=== PATIENT | female | born 1980 | race Caucasian/White ===

== ENCOUNTER 2016-11-08 18:00 | Emergency (ER) | payer BC ==
--- NOTE | 2016-11-08 18:38 | EDM.PDOCBH ---
ED HPI GENERAL MEDICAL PROBLEM - General Chief Complaint: Behavioral/Psych Time Seen by Provider: 11/08/16 18:23 Source of Information: Reports: Patient - History of Present Illness INITIAL COMMENTS - FREE TEXT/NARRATIVE: Patient presents for medical clearance to go to treatment for mental health. Pt has been screened and accepted for treatment pending medical clearance. 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: Psychiatric History: Reports: ADD, ADHD, Anxiety, Depression, OCD Social & Family History - Tobacco Use Smoking Status *Q: Current Every Day Smoker Years of Tobacco use: 20 Packs/Tins Daily: 1 Used Tobacco, but Quit: No Second Hand Smoke Exposure: Yes - Recreational Drug Use Recreational Drug Use: No ED ROS GENERAL - Review of Systems Review Of Systems: See Below Constitutional: Denies: Fever, Chills, Weakness, Decreased Appetite HEENT: Denies: Ear Pain, Throat Pain Respiratory: Denies: Shortness of Breath, Cough Cardiovascular: Denies: Chest Pain, Syncope GI/Abdominal: Denies: Abdominal Pain : Denies: Dysuria, Flank Pain Musculoskeletal: Reports: No Symptoms Skin: Reports: No Symptoms Neurological: Denies: Confusion, Seizure, Syncope Psychiatric: Reports: Anxiety ED EXAM, BEHAVIORAL HEALTH - Physical Exam Exam: See Below Exam Limited By: No Limitations General Appearance: Alert, WD/WN, Anxious Eye Exam: Bilateral Eye: EOMI, Normal Inspection, PERRL Ears: Normal External Exam, Normal Canal, Hearing Grossly Normal, Normal TMs Nose: Normal Inspection, No Blood Throat/Mouth: Normal Inspection, Normal Lips, Normal Oropharynx, Normal Voice, No Airway Compromise Head: Atraumatic, Normocephalic Neck: Full Range of Motion Respiratory/Chest: No Respiratory Distress, Lungs Clear, Normal Breath Sounds, No Accessory Muscle Use Cardiovascular: Regular Rate, Rhythm, No Murmur GI/Abdominal: Normal Bowel Sounds, Soft, Non-Tender, Other (I performed an abbreviated abdominal exam as this exacerbated her anxiety noticeably; her health-care worker says this is do to previous trauma (further details were not obtained).) Back Exam: Normal Inspection Extremities: Normal Inspection, Normal Range of Motion Neurological: Alert, CN II-XII Intact, Normal Cognition, No Motor/Sensory Deficits, Oriented x 3 Psychiatric: Alert, Normal Cognition, Oriented, Tearful. No: Suicidal Plan, Suicidal Thoughts Skin Exam: Warm, Dry, Intact, Normal color, No rash COURSE, BEHAVIORAL HEALTH COMP - Course Orders, Labs, Meds: Active Orders 24 hr Category Date Time Status ETHANOL BLOOD MEDICAL [CHEM] Stat Lab 11/08/16 18:15 Received MAGNESIUM [CHEM] Stat Lab 11/08/16 18:15 Received TOTAL IRON BINDING CAPACITY [CHEM] Stat Lab 11/08/16 18:15 Received UA W/MICROSCOPIC [URIN] Stat Lab 11/08/16 18:03 Uncollected Medical Clearance: 11/08/16 18:46 [facility] with her accepting mental health center. Waiting on lab results. 11/08/16 19:22 Talked with the receiving MD at the [facility] and he is okay with patient transferring without UA so will send her now. Patient is stable for transfer. Departure - Departure Time of Disposition: 19:22 Disposition: DC/Tfer to Psych Hosp/Unit 65 Condition: Good Clinical Impression: Mental health disorder - Discharge Information Forms: ED Department Discharge - My Orders Last 24 Hours: My Active Orders 11/08/16 18:03 UA W/MICROSCOPIC [URIN] Stat 11/08/16 18:15 ETHANOL BLOOD MEDICAL [CHEM] Stat MAGNESIUM [CHEM] Stat TOTAL IRON BINDING CAPACITY [CHEM] Stat - Assessment/Plan Last 24 Hours: My Active Orders 11/08/16 18:03 UA W/MICROSCOPIC [URIN] Stat 11/08/16 18:15 ETHANOL BLOOD MEDICAL [CHEM] Stat MAGNESIUM [CHEM] Stat TOTAL IRON BINDING CAPACITY [CHEM] Stat
[2016-11-08 18:39] VITALS: BP 141/83
[2016-11-08] MEDS ORDERED: LORazepam 2 MG/ML SDV IM ONE (18:43)
== END 2016-11-08 19:30 ==
LOC: KA.ED 18:00
DX: F99 Mental disorder, not otherwise specified (principal); F90.8 Attention-deficit hyperactivity disorder, other type; F41.9 Anxiety disorder, unspecified; F31.9 Bipolar disorder, unspecified; F42.9 Obsessive-compulsive disorder, unspecified; F17.210 Nicotine dependence, cigarettes, uncomplicated; Z79.899 Other long term (current) drug therapy
CPT/HCPCS: 36415; 83540; 83550; 83735; 99283; G0480; J2060

== ENCOUNTER 2020-03-16 09:53 | Emergency (ER) | payer BC ==
--- NOTE | 2020-03-16 10:12 | EDM.PDOC ---
ED HPI GENERAL MEDICAL PROBLEM - General Chief Complaint: Abdominal Pain Stated Complaint: RUQ PAIN Time Seen by Provider: 03/16/20 09:53 Source of Information: Reports: Patient History Limitations: Reports: No Limitations - History of Present Illness INITIAL COMMENTS - FREE TEXT/NARRATIVE: Chelsea, 39-year-old female, this morning was not feeling well while she was at work. She contacted the clinic and was placed into a telemedicine Zoom visit for evaluation. Provider felt she was witnessing shortness of breath along with her discomfort and recommended she being transported for the facility for evaluation. Known Covid positive with recovery 2 months ago. 1 month of symptoms with recovery since then. Stated she had first felt is if she was hypoglycemic as she had not eaten much this morning. She drank some high sugar content fluid and had a blood sugar of 233 when it was checked. This dissipated into the 170s when ambulance presented on initial assessment. She denies any shortness of breath at the time ambulance arrived or since then. Onset: Today, Sudden Duration: Minutes: Location: Reports: Abdomen Quality: Reports: Ache Severity: Moderate Improves with: Reports: None Worsens with: Reports: Movement Context: Reports: Activity Associated Symptoms: Reports: No Other Symptoms Right Upper Abdomen Pain Score (Numeric/FACES): 3 - Related Data Allergies Allergy/AdvReac Type Severity Reaction Status Date / Time No Known Drug Allergies Allergy Unknown none Verified 11/08/16 16:53 Home Meds: Home Meds Omeprazole 20 mg PO BID 11/07/15 [History] atorvaSTATin [Lipitor] 20 mg PO DAILY 11/07/15 [History] lamoTRIgine [Lamotrigine] 200 mg PO BEDTIME 11/07/15 [History] Gabapentin [Neurontin] 300 mg PO BID 11/08/16 [History] metFORMIN HCl [Metformin HCl] 1,000 mg PO BID 11/08/16 [History] DULoxetine HCl [Cymbalta] 120 mg PO BEDTIME 03/16/20 [History] Lurasidone HCl [Latuda] 60 mg PO DAILY 03/16/20 [History] Sulfamethoxazole/Trimethoprim [Bactrim Ds Tablet] 1 each PO BID 7 Days #14 tablet 03/16/20 [Rx] glipiZIDE [Glucotrol] 5 mg PO BID 03/16/20 [History] hydrOXYzine HCL [Hydroxyzine HCl] 25 mg PO TID PRN 03/16/20 [History] Past Medical History HEENT History: Reports: None Cardiovascular History: Reports: None Respiratory History: Reports: None 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: , 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 ED EXAM, GENERAL - Physical Exam Exam: See Below Free Text/Narrative:: Alert oriented, in no acute distress. She is able to move from the ambulance cart per self and ambulate to the bathroom at which time she is able to give us a urine sample. She has slight discomfort in the right upper quadrant with positioning. She denies any shortness of breath with activity or after ambulance arrival. HEENT is negative discharge or deformity. There is no cyanosis nor pallor. PERRLA no icterus no injection There is no involvement of the auditory canals nor tympanic membranes. Neck is soft supple with no lymphadenopathy. Thorax is clear no wheezes nor crackles are noted. Cardiac is S1 is 2 with no appreciated murmur somewhat distant tones. Abdomen is soft bowel sounds are present there is mild tenderness in the right upper quadrant but not in a repeated fashion. No flank pain is noted. No tenderness to the pelvic girdle or over the urinary bladder with no edema to the lower extremities motion is intact and pulses are present. Skin is warm and dry. rectal is deferred. Course - Vital Signs Last Recorded V/S: Last Vital Signs Temp 97.8 F 03/16/20 10:56 Pulse 79 03/16/20 10:56 Resp 18 03/16/20 10:56 BP 113/66 03/16/20 10:56 Pulse Ox 93 L 03/16/20 10:56 - Orders/Labs/Meds Labs: Laboratory Tests 03/16/20 03/16/20 03/16/20 Range/Units 09:45 09:45 10:08 WBC 15.91 H (5.00-10.00) 10^3/uL RBC 5.15 (3.80-5.50) 10^6/uL Hgb 14.5 (12.0-16.0) g/dL Hct 44.8 (37.0-47.0) % MCV 87.0 (82.0-92.0) fL MCH 28.2 (27.0-31.0) pg MCHC 32.4 (32.0-36.0) g/dL RDW 14.3 (11.5-14.5) % Plt Count 422 H (150-400) 10^3/uL MPV 9.3 (7.4-10.4) fL Immature Gran % (Auto) 0.1 (0.0-5.0) % Neut % (Auto) 73.5 H (50.0-70.0) % Lymph % (Auto) 18.2 L (20.0-40.0) % [place] % (Auto) 5.5 (2.0-8.0) % Eos % (Auto) 2.3 (1.0-3.0) % Baso % (Auto) 0.4 (0.0-1.0) % Neut # (Auto) 11.69 H (2.50-7.00) 10^3/uL Lymph # (Auto) 2.89 (1.00-4.00) 10^3/uL [place] # (Auto) 0.88 H (0.10-0.80) 10^3/uL Eos # (Auto) 0.37 H (0.10-0.30) 10^3/uL Baso # (Auto) 0.06 (0.00-0.10) 10^3/uL Immature Gran # (Auto) 0.02 (0.00-0.50) 10^3/uL Sodium 140 (136-145) mmol/L Potassium 3.7 (3.3-5.3) mmol/L Chloride 102 (98-115) mmol/L Carbon Dioxide 21.7 (21.0-32.0) mmol/L Anion Gap 20.0 H (5-15) mmol/L BUN 11 (6-25) mg/dL Creatinine 0.68 (0.51-1.17) mg/dL Est Cr Clr Drug Dosing TNP Estimated GFR (MDRD) > 60 mL/min Glucose 142 H (75 - 99) mg/dL Calcium 9.5 (8.7-10.3) mg/dL Total Bilirubin 0.3 (0.2-1.0) mg/dL AST 20 (15-37) U/L ALT 25 (12-78) U/L Alkaline Phosphatase 94 (46-116) IU/L Total Protein 7.3 (6.4-8.2) g/dL Albumin 3.67 (3.00-4.80) g/dL Amylase 50 (25-125) U/L Lipase 54 L (73-393) U/L Specimen Type Urincc Urine Color Yellow (YELLOW) Urine Appearance Clear (CLEAR) Urine pH 5.5 (5.0-9.0) Ur Specific [place] 1.010 (1.005-1.030) Urine Protein Negative (NEGATIVE) mg/dL Urine Glucose (UA) Negative (NEGATIVE) mg/dL Urine Ketones Negative (NEGATIVE) mg/dL Urine Occult Blood Negative (NEGATIVE) Urine Nitrite Negative (NEGATIVE) Urine Bilirubin Negative (NEGATIVE) Urine Urobilinogen 0.2 (0.2-1.0) E.U./dL Ur Leukocyte Esterase Negative (NEGATIVE) Urine RBC 0-5 (0-5) /HPF Urine WBC 0-5 (0-5) /HPF Ur Epithelial Cells Occasional /LPF Urine Bacteria Rare (NONE TO FEW) /HPF Departure - Departure Time of Disposition: 11:42 Disposition: Home, Self-Care 01 Condition: Good, Fair Clinical Impression: Gastroenteritis Leukocytosis Qualifiers: Leukocytosis type: unspecified Qualified Code(s): D72.829 - Elevated white blood cell count, unspecified - Discharge Information *PRESCRIPTION DRUG MONITORING PROGRAM REVIEWED*: Not Applicable *COPY OF PRESCRIPTION DRUG MONITORING REPORT IN PATIENT [place]: Not Applicable Prescriptions: Sulfamethoxazole/Trimethoprim [Bactrim Ds Tablet] 1 each PO BID 7 Days #14 tablet Referrals: Tyesha Hutchins MD [Primary Care Provider] - Forms: ED Department Discharge, ED Return to Work/School Form Additional Instructions: No radiology evidence of infection is noted on films. Mild elevation in your white count is noted with no positive findings, on examination. As we discussed 7-day course of antibiotic would be initiated. You need to call and arrange an appointment at your clinic for Monday for reevaluation. Increase your fluid intake and avoid fatty hard to digest foods. The likelihood of gallbladder is low but does enter into differential diagnosis. Call or return if symptoms worsen or concerns develop with either your clinic or the emergency department. Sepsis Event Note (ED) - Focused Exam Vital Signs: Vital Signs Temp Pulse Resp BP Pulse Ox 03/16/20 10:56 97.8 F 79 18 113/66 93 L 03/16/20 10:20 97.1 F 83 20 132/87 96 - Problem List & Annotations (1) Leukocytosis SNOMED Code(s): 933310989, 752918495 Code(s): D72.829 - ELEVATED WHITE BLOOD CELL COUNT, UNSPECIFIED Status: Acute Priority: Medium Current Visit: Yes Qualifiers: Leukocytosis type: unspecified Qualified Code(s): D72.829 - Elevated white blood cell count, unspecified (2) Diabetes 1.5, managed as type 2 SNOMED Code(s): 810024351 Code(s): E13.9 - OTHER SPECIFIED DIABETES MELLITUS WITHOUT COMPLICATIONS Status: Chronic Priority: Medium Current Visit: Yes - Problem List Review Problem List Initiated/Reviewed/Updated: Yes - Assessment/Plan Plan: No radiology evidence of infection is noted on films. Mild elevation in your white count is noted with no positive findings, on examination. As we discussed 7-day course of antibiotic would be initiated. You need to call and arrange an appointment at your clinic for Monday for reevaluation. Increase your fluid intake and avoid fatty hard to digest foods. The likelihood of gallbladder is low but does enter into differential diagnosis. Call or return if symptoms worsen or concerns develop with either your clinic or the emergency department.
[2020-03-16 10:47] LABS: CHLORIDE,CL 102 mmol/L (98-115); SODIUM,NA 140 mmol/L (136-145)
[2020-03-16 10:56] VITALS: BP 113/66; PULSE 79
--- NOTE | 2020-03-16 11:09 | CR ---
[id number] RAD/RAD Abd Flat and Upright 2V EXAM: RAD Abd Flat and Upright 2V INDICATION: ABDOMEN PAIN. COMPARISON: None. DISCUSSION: Intrauterine device overlying the mid pelvis. Normal bowel gas pattern with no bowel dilation, free air or pneumatosis. No pathologic calcifications or osseous lesions are identified. IMPRESSION: 1. Normal bowel gas pattern. Farshad Wilson MD 03/16/20 [id number] Thank you for allowing us to participate in the care of your patient.
--- NOTE | 2020-03-16 11:18 | CR ---
[id number] RAD/RAD Chest PA And Lateral EXAM: RAD Chest PA And Lateral INDICATION: UPPER ABDOMEN PAIN. COMPARISON: November 07, 2015. DISCUSSION: Cardiomediastinal silhouette is normal in size and contour. No infiltrate, effusion, pneumothorax, or edema. IMPRESSION: No acute cardiopulmonary abnormality. Ranjit Holley DO 03/16/20 1116 Thank you for allowing us to participate in the care of your patient.
== END 2020-03-16 12:00 | disposition home or self-care (01) ==
LOC: KA.ED 09:53
DX: K52.9 Noninfective gastroenteritis and colitis, unspecified (principal); D72.829 Elevated white blood cell count, unspecified; F41.9 Anxiety disorder, unspecified; F32.9 Major depressive disorder, single episode, unspecified; E11.9 Type 2 diabetes mellitus without complications; Z79.899 Other long term (current) drug therapy
CPT/HCPCS: 71046; 74021; 80053; 81001; 82150; 83690; 85025; 99283; 99285-25

== ENCOUNTER 2024-10-21 18:00 | Emergency (ER) | payer SELFPAY ==
[2024-10-21 18:22] LABS: BASOPHILS ABSOLUTE AUTO 0.07 10^3/uL (0.00-0.10); BASOPHILS PERCENT AUTO 0.4 % (0.0-1.0); EOSINOPHILS ABSOLUTE AUTO 0.66 10^3/uL (0.10-0.30); EOSINOPHILS PERCENT AUTO 3.8 % (1.0-3.0); IMMATURE GRAN ABSOLUTE AUTO 0.02 10^3/uL (0.00-0.04); IMMATURE GRAN PERCENT AUTO 0.1 % (0.0-0.4); LYMPHOCYTES ABSOLUTE AUTO 3.55 10^3/uL (1.00-4.00); LYMPHOCYTES PERCENT AUTO 20.4 % (20.0-40.0); MEAN PLATELET VOLUME 9.1 fL (7.4-10.4); MONOCYTES ABSOLUTE AUTO 1.39 10^3/uL (0.10-0.80); MONOCYTES PERCENT AUTO 8.0 % (2.0-8.0); NEUTROPHILS ABSOLUTE AUTO 11.68 10^3/uL (2.50-7.00); NEUTROPHILS PERCENT AUTO 67.3 % (50.0-70.0); PLATELET COUNT,PLT 361 10^3/uL (150-400); RED BLOOD CELL COUNT 4.66 10^6/uL (3.80-5.50); RED CELL DISTRIBUTION WIDTH 13.3 % (11.5-14.5); WHITE BLOOD CELL COUNT,WBC 17.37 10^3/uL (5.00-10.00)
[2024-10-21 18:33] LABS: ALANINE AMINOTRANSFERASE,ALT 22 U/L (14-63); ASPARTATE AMNIOTRANSFERASE,AST 25 U/L (15-37); BILIRUBIN TOTAL 0.5 mg/dL (0.2-1.0); BLOOD UREA NITROGEN,BUN 14 mg/dL (7-18); CARBON DIOXIDE,CO2 20.7 mmol/L (21.0-32.0); CHLORIDE,CL 106 mmol/L (98-107); CREATININE 1.00 mg/dL (0.51-1.17); EST CRCL DRUG DOSING (CG) 61.99 mL/min; GLUCOSE RANDOM 99 mg/dL (70-140); POTASSIUM,K 3.4 mmol/L (3.5-5.1); PROTEIN TOTAL,TP 7.4 g/dL (6.4-8.2); SODIUM,NA 145 mmol/L (136-145)
[2024-10-21 18:34] LABS: ESTIMATED GFR 71 mL/min (>=60); ETHANOL BLOOD MEDICAL < 3 mg/dL (<3)
[2024-10-21 19:35] LABS: OXYCODONE SCREEN,URINE NEGATIVE (NEGATIVE); THC SCREEN,URINE 50 NG/ML POSITIVE (NEGATIVE)
[2024-10-21] MEDS: Magnesium Sulfate 2 GM/50 mL 2 GM in Premix Bag 1 BAG IV ONE (19:35)
[2024-10-21 19:36] LABS: AMPHETAMINES SCREEN, URINE NEGATIVE (NEGATIVE); COCAINE METABOLITES,URINE NEGATIVE (NEGATIVE); METHADONE SCREEN, URINE NEGATIVE (NEGATIVE); METHAMPHETAMINES SCREEN, URINE NEGATIVE (NEGATIVE); PCP SCREEN,URINE NEGATIVE (NEGATIVE); TCA SCREEN,URINE NEGATIVE (NEGATIVE)
[2024-10-21 20:41] LABS: APPEARANCE,URINE CLEAR (CLEAR); GLUCOSE,URINE NEGATIVE (NEGATIVE); OCCULT BLOOD,URINE NEGATIVE (NEGATIVE)
[2024-10-21 20:42] LABS: SQUAMOUS EPITHELIAL CELLS,UR FEW /HPF (NOT SEEN)
[2024-10-22 08:46] VITALS: BP 106/69; PULSE 89
== END 2024-10-21 22:19 | disposition home or self-care (01) ==
LOC: KA.ED 18:00
DX: F32.A Depression, unspecified (principal); F41.0 Panic disorder [episodic paroxysmal anxiety]; F99 Mental disorder, not otherwise specified; E11.9 Type 2 diabetes mellitus without complications; Z86.16 Personal history of COVID-19; Z88.5 Allergy status to narcotic agent; Z79.84 Long term (current) use of oral hypoglycemic drugs; Z79.899 Other long term (current) drug therapy
CPT/HCPCS: 36415; 71045; 80053; 80143; 80179; 80305-QW; 80307; 81001; 83605; 83735; 85025; 93010; 96361; 96365; 96366; 99283; 99285-25; J3475; J7030; Q3014